=== PATIENT | female | born 1975 | race Two or more races ===

== ENCOUNTER 2022-12-03 14:50 | Emergency (ER) | payer OTHER ==
[~2022-12-03] VITALS: Ht 165.1 cm; Wt 83.0 kg
[2022-12-03] MEDS ORDERED: BUPROPION XL450 MG (15:35)
[2022-12-03] MEDS ORDERED: SYNTHROID100 MCG PO (15:36)
[2022-12-03] MEDS ORDERED: SERTRALINE HCL150 MG PO (15:36)
== END 2022-12-03 18:20 | disposition home or self-care (01) ==
LOC: ER 14:50
DX: M54.31 Sciatica, right side (principal); Z91.013 Allergy to seafood